=== PATIENT | female | born 1935 | race Caucasian/White ===

== ENCOUNTER 2021-10-06 11:06 | Day surgery (SDC) | payer MEDICARE, SELFPAY ==
[2021-10-01 10:58] VITALS: BMI 25.4
[2021-10-06 11:46] VITALS: BP 187/63; PULSE 60; RESP 18; O2SAT 98
--- NOTE | 2021-10-06 14:15 | P.PN_ITS ---
[facility] Anesthesia Checklist - Patient Identification Patient Identification: Arm Band - Structural Data Admitted From: Home Planned Operative Procedure/s: Pain pump placement Consent for Planned Operative Procedure(s) Verified: Yes - NPO Status Verified Time NPO: 00:00 - Additional verifications Anesthesia Reactions: No Hx Blood Transfusions: No Blood Transfusion Reaction: No - Airway Assessment C-Spine Mobility Assessed: Yes TMJ Mobility Assessed: Yes Dentition: Poor Dentition - Neurological Assessment Level of Consciousness: Awake Hx Seizures: No Numbness or tingling in extremities: No - Anesthesia Plan Anesthesia Risk discussed: Yes Anesthesia Plan: Verified ASA Class: III Anesthesia Type: MAC [facility] History I have reviewed the patient's past medical history: Yes Medical History: Reports:: Cancer (SKIN), Gastroesophageal Reflux Disease(GERD), Hyperlipidemia, Hypertension Denies:: Diabetes Mellitus Type 1, Diabetes Mellitus Type 2, Internal Pacemaker, MRSA, Seizures *Have you ever received a pneumonia vaccine?: Yes *Have you received a flu vaccine this season?: Yes Other Medical History: Reports: Other (BACK ISSUE 2019, pacemaker). Denies: Blood Transfusion Reaction Anesthesia experience/problems:: None Other Surgeries: Yes: Hysterectomy-Total, Pacemaker Amputation: No Fractures: No - *Social History Smoking Status: Never smoker Alcohol Intake: never Substance Use Type: denies use *Occupational Status:: retired Housing: house Household Members: none *Travel in the last 8 weeks: None Family Hx:: Unable to obtain
--- NOTE | 2021-10-06 15:04 | P.OP_ITS ---
Date of procedure: 10/06/21 Pre-op Diagnosis:: Degenerative disc disease of lumbar spine with lumbar radiculopathy symptoms and postlaminectomy syndrome lumbar spine Post-op Diagnosis:: Same Procedure performed:: Permanent pain pump placement with intrathecal catheter placement and pump generator placement Surgeon:: Jason Juan MD [employer] OPERATOR:: Xochilt Caal Anesthesia: MAC Estimated blood loss (mL): 5 Clinical Note:: This patient is a pleasant 85-year-old white female who we have been treating for low back pain with lumbar radiculopathy symptoms and postlaminectomy syndrome lumbar spine. She has failed all previous conservative therapy including physical therapy, oral medications, previous surgery and she is not a candidate for any further surgery. She has had a successful psychological evaluation. She is also had a successful intrathecal pump trial. She presents for permanent placement of intrathecal pain pump today. Operative findings:: None Operative note:: Informed consent was obtained the risk and benefits of the procedure were explained to the patient. Patient was taken the operating room placed prone on the procedure table. She was prepped and draped in sterile fashion. C-arm fluoroscopy was used to view the lumbar spine. The pump generator pocket was made on the left flank. The skin and subcutaneous tissues adjacent to the L4-5 and L5-S1 interspace were anesthetized using lidocaine. I made an incision and dissected down to the lumbar paraspinous fascia. A 15-gauge spinal needle was inserted and advanced into the L5-S1 interspace until clear CSF was obtained. After this intrathecal catheter was inserted advanced very easily to the L1 vertebral body. The stylette of the catheter and the needle were withdrawn. The catheter secured to the fascia with 2 anchoring devices and 2-0 Prolene. I prepared the pump with 20 mls of intrathecal morphine 5 mg/mL. I then tunneled the catheter from the back to the pump pocket and attached catheter to the pump. We were able to freely withdraw clear CSF through the side-port. Both incisions were irrigated with antibiotic solution. Both incisions were then closed with 2-0 Vicryl followed by 4-0 nylon. A wound VAC was placed over the incisions. The patient was placed in an abdominal binder taken recovery in stable condition. Patient tolerated the procedure well with no complications. Pump was interrogated and started 0.25 mg/day of intrathecal morphine. Patient was discharged home neurologically intact with good relief of pain symptoms. Pain and disposition: We will follow-up with this patient in 1 week in our [place] office. If she has any problems questions to call us back in the pain clinic. Condition: stable Disposition: PACU Complications:: None
[2021-10-06 15:22] VITALS: BP 143/57; PULSE 64; RESP 18; TEMP 36.3; O2SAT 99
[2021-10-06 15:32] VITALS: BP 171/78; PULSE 59; RESP 18; O2SAT 96
[2021-10-06 15:42] VITALS: BP 164/66; PULSE 59; RESP 18; O2SAT 97
[2021-10-06 15:52] VITALS: BP 172/77; PULSE 60; RESP 18; O2SAT 97
== END 2021-10-06 16:05 | disposition home or self-care (01) ==
LOC: OR 11:10
PROVIDERS: PCP Family Medicine; Visit Provider Anesthesiology
DX: M51.16 Intervertebral disc disorders with radiculopathy, lumbar region (principal); M96.1 Postlaminectomy syndrome, not elsewhere classified; K21.9 Gastro-esophageal reflux disease without esophagitis; E78.5 Hyperlipidemia, unspecified; I10 Essential (primary) hypertension; M15.4 Erosive (osteo)arthritis; Z95.810 Presence of automatic (implantable) cardiac defibrillator; Z79.899 Other long term (current) drug therapy
CPT/HCPCS: 62350; 62362; C1755; C1772; J3370

== ENCOUNTER → 2021-10-23 14:53 | Outpatient (CLI) | payer MEDICARE, SELFPAY ==
[2021-10-23 13:32] LABS: Basophils # 0.1 K/mm3 (0-0.2); Basophils % 1.2 % (0.1-2.0); Eosinophils # 0.1 K/mm3 (0.0-0.4); Eosinophils % 1.8 % (0.1-12.0); Hematocrit 40.8 % (37.0-47.0); Hemoglobin 13.2 g/dL (12.2-16.2); Lymphocytes # 1.7 K/mm3 (0.7-4.5); Lymphocytes % 28.8 % (10-50); Mean Corpuscular HGB Conc 32.4 g/dL (31.8-35.4); Mean Corpuscular Hemoglobin 31.4 pg (27.0-31.2); Mean Corpuscular Volume 96.8 fl (81-99); Monocytes # 0.5 K/mm3 (0.1-1.0); Neutrophils # 3.5 K/mm3 (1.8-7.8); Neutrophils % 60.1 % (37.0-80.0); Platelet Count 319 K/mm3 (142-424); Red Blood Count 4.22 M/mm3 (4.20-5.40); Red Cell Distribution Width 14.4 % (11.5-17.5); White Blood Count 5.8 K/mm3 (4.8-10.8)
[2021-10-23 14:10] LABS: Alanine Aminotransferase 14 U/L (12-78); Albumin Level 3.9 g/dl (3.5-5.0); Albumin/Globulin Ratio 1.4 (1.1-1.8); Alkaline Phosphatase 65 U/L (38-126); Anion Gap 11.1 mEq/L (5-15); Aspartate Amino Transferase 25 U/L (14-36); Bilirubin,Total 0.3 mg/dl (0.2-1.3); Blood Urea Nitrogen 19 mg/dl (7-17); Calcium 9.2 mg/dl (8.4-10.2); Carbon Dioxide 26 mmol/L (22.0-30.0); Chloride 103 mmol/L (98-107); Estimated Glomerular Filt Rate 60 ml/min (>60); GFR (African American) 72 ML/MIN (>60); Globulin 2.7 g/dL (1.3-3.2); Glucose 83 mg/dl (74-100); Potassium 4.1 mmoL/L (3.5-5.1); Sodium 136 mmol/L (136-145); Total Protein,Serum 6.6 g/dl (6.3-8.2)
[2021-10-23 14:41] LABS: Thyroid Stimulating Hormone 5.37 uIU/mL (0.465-4.68)
== END ==
PROVIDERS: PCP Family Medicine; Visit Provider Family Medicine
DX: E78.5 Hyperlipidemia, unspecified (principal)
CPT/HCPCS: 80053; 84443; 85025

== ENCOUNTER 2024-05-11 14:46 | Day surgery (SDC) | payer MEDICARE, SELFPAY ==
[2024-05-11 14:55] VITALS: BP 151/42; PULSE 60; RESP 18; O2SAT 99
[2024-05-11 15:36] VITALS: BP 151/85; PULSE 60; RESP 16; O2SAT 98; BMI 28.3
--- NOTE | 2024-05-11 15:51 | EXP.PAIN.PRO ---
Procedure Date: 05/11/24 Time: 15:51 Anesthesiologist:: Abena Barrett APRN Complications:: None Pre-procedure Diagnosis:: Degenerative disc disease of lumbar spine with lumbar radiculopathy symptoms Post-procedure Diagnosis:: Same Indications for Procedure:: Patient is a pleasant 88-year-old female who presents today for intrathecal refill and reprogram. Today she rates her pain a 0 out of 10. She states that overall she is done really well the last couple of weeks and has not really had much back pain. Patient is currently managed with morphine 5 mg/mL with a daily dose of 0.3 mg/day. She denies any side effects from this medication. Her Kendell has been reviewed and is appropriate. Physical Exam: General: Alert and oriented x3, no acute distress, pleasant and cooperative Lungs: Respirations even and unlabored, symmetrical chest expansion Eyes: PERRL Musculoskeletal: Flexion and extension of lumbar [spine] somewhat guarded secondary to pain, [antalgic gait noted] Neurological: Speech clear, no gross sensory deficit Procedure Details:: Informed consent was obtained and the risk and benefits of the procedure were explained to the patient. The patient had noninvasive monitoring placed including noninvasive blood pressure cuff and pulse oximeter. Patient's pump was interrogated. The area over the pump was cleansed with chlorhexidine as a cleansing solution. In sterile fashion the pump was accessed with a 22-gauge needle. Approximately 12.5 mls of the pump solution was removed and discarded appropriately. The pump was then refilled with 20 mL's of morphine 5 mg/mL]. The needle was withdrawn and a bandage was placed over the puncture site. The infusion rate was reprogrammed and morphine 0.3 mg/day. The patient tolerated well with no complication. Plan and Disposition:: Patient tolerated her procedure well with no complications and was discharged neurologically intact. Patient will return to clinic in 3 months for her next intrathecal refill and reprogram. We will see the patient back in the clinic at the next intrathecal refill. Patient has been instructed to contact the clinic with any concerns before the next appointment. Dr. Juan has reviewed this note and agrees with this plan of care. This note was dictated using voice recognition software and make contain errors or omissions. -- It Is medically necessary for this patient to continue to have their intrathecal pump refilled at regular intervals. This patient had an intrathecal pain pump implanted after meeting criteria of chronic intractable pain for greater than 3 months and failing conservative treatments. Patient has committed and been compliant to the treatment plan and all planned follow up care. Since implantation of the intrathecal pain pump, the patient has had decreased pain and been more functional. Oral medications have been reduced including intake of oral opioids. Patient continues to do well with intrathecal therapy with decrease in pain symptoms and increase in functional status. Stopping intrathecal medications can lead to life threatening withdrawal, seizures, cardiac arrest, severe pain, and possible . Pumps that are not refilled at regular intervals can be damages and cause and need for replacement. We continually titrate dose and concentration to optimize pain relief and function. We are limited in concentration for certain drugs to safely deliver medications through the pump and stay within the recommendations from the Polyanalgesic Consensus Committee Guidelines. Depending on dose and concentration these pumps may need to be refilled sooner than 3 months as we titrate. A UDS is needed to verify patient's compliance with our office pain contract. This is ordered based off specific treatments related to chronic pain with the potential to abuse certain medications.
[2024-05-11 16:06] VITALS: BP 159/63; PULSE 60; RESP 16; O2SAT 98
== END 2024-05-11 16:06 | disposition home or self-care (01) ==
PROVIDERS: PCP Family Medicine; Visit Provider Nurse Practitioner Family
DX: M51.16 Intervertebral disc disorders with radiculopathy, lumbar region (principal)
CPT/HCPCS: 62370

== ENCOUNTER 2024-09-07 10:39 | Day surgery (SDC) | payer MEDICARE, SELFPAY ==
--- NOTE | 2024-09-07 10:43 | P.HP_ITS ---
History of Present Illness *Admission Date: 09/07/24 *Reason for visit:: Intrathecal refill, DDD *History of present illness: Degenerative disc disease [facility] Disclaimer: The information contained in this section may have been updated after the patient was seen, as this information can be updated by other users. Social History Smoking Status: Never smoker alcohol intake: never substance use type: denies use current occupational status: retired Travel in the last 8 weeks?: None household members: none housing: house current occupational exposures/hazards: No caffeine: Yes Have you lived/traveled outside [place] in past 30 days?: No Contact w/someone who lives/traveled outside US past 30 days?: No Exposure to someone with infectious disease in past 14 days?: No Do you have a fever (greater than 100.4 F or 38 C)?: No Have you tested positive for COVID-19?: No Exposed to someone with COVID-19 in past 14 days?: No Do you have a sore throat?: No Do you have a cough?: No Do you have any weakness?: No Do you have any diarrhea?: No Are you experiencing any unusual bleeding?: No Do you have any muscle aches/pain?: No Do you have any abdominal pain?: No Are you experiencing loss of taste or smell?: No Other Medical History Have you received the Flu Vaccine for this season: No Have you received the Pneumonia Vaccine: No Review of Systems Review of Systems Review of systems:: pertinent systems reviewed and negative unless documented below Review of systems (narrative): Review of Systems: General: No recent weight changes, no fever, no sleep disturbances Respiratory: No cough, no shortness of air, no recurring pulmonary infections Cardiovascular/peripheral vascular: No chest pain, no palpitations, no edema, no shortness of breath Gastrointestinal: No new onset incontinence, normal bowel movements reported Genitourinary: No new onset incontinence Musculoskeletal: Chronic back pain Psychiatric: [Normal mood/affect] Neurological: [Denies weakness in extremities], [denies balance issues] Meds Home Medications and Allergies Home Medications ?Medication ?Instructions ?Recorded ?Confirmed ?Type tramadol 50 mg tablet 50 mg PO .prn Pain 06/26/21 05/11/24 History amiodarone 200 mg tablet 200 mg PO DAILY High blood pressure 10/01/21 05/11/24 History carvedilol 3.125 mg tablet 3.125 mg PO BID High blood pressure 10/01/21 05/11/24 History lovastatin 20 mg tablet 20 mg PO DAILY Cholesterol 10/01/21 05/11/24 History pantoprazole 20 mg tablet,delayed See Rx Instructions .Route 10/01/21 05/11/24 History release .COMPLEX GERD alendronate 70 mg tablet 70 mg PO DAILY 10/23/21 05/11/24 History estradiol 2 mg (7.5 mcg/24 hour) 1 vag ring vaginal [id number] 10/23/21 05/11/24 History vaginal ring (Estring) levothyroxine 50 mcg tablet See Rx Instructions .Route 12/06/22 05/11/24 Rx .COMPLEX #90 tabs New Prescriptions to Start Prescriptions: Allergies Allergy/AdvReac Type Severity Reaction Status Date / Time No Known Allergies Allergy Verified 10/23/21 10:46 Exam Constitutional Constitutional: no acute distress *Routine HEENT Exam Head: Present normocephalic and atraumatic Eye: Present PERRL ENT: Present mucous membranes moist *Routine Neck Exam Neck: Present supple *Routine Respiratory Exam Respiratory: Present CTA bilaterally *Routine Cardiovascular Exam Cardiovascular: Present RRR *Routine Abdominal Exam Abdominal: Present soft *Routine Rectal Exam Rectal:: deferred *Routine Genitalia Exam Genitalia:: normal female Routine Back/Spine/Pelvis Exam Back/Spine: Present pain with flexion *Routine Skin Exam Skin: Present intact, dry and warm *Routine Neurological Exam Neurological: Present alert and oriented X3 Routine Psychiatric Exam Psychiatric: Present normal affect Assessment and Plan *Assessment and plan (1) Chronic pain syndrome: Status: Acute Category: Medical Code(s): G89.4 - Chronic pain syndrome Plan Patient has been instructed to contact the clinic with any concerns before the next appointment. Dr. Juan has reviewed this note and agrees with this plan of care. This note was dictated using voice recognition software and make contain errors or omissions. All injections are used with Lidocaine, Bupivacaine and dexamethasone. Occasionally urine drug screen is needed to verify patient's compliance with our office pain contract. This is ordered based off specific treatments related to chronic pain with the potential to abuse certain medications.
--- NOTE | 2024-09-07 10:44 | P.PCN_ITS ---
Procedure Date: 09/07/24 Time: 10:58 Anesthesiologist:: Abena Barrett APRN Complications:: None Pre-procedure Diagnosis:: Chronic pain syndrome degenerative disc disease Post-procedure Diagnosis:: Same Indications for Procedure:: Patient is a pleasant 88-year-old female who presents today for intrathecal refill and reprogram. Today she rates her pain a 0 out of 10. She denies any recent falls. She states overall she is still doing really well with her pump and not having any back pain.Patient is managed with intrathecal morphine 5 mg/mL with a daily dose of 0.3 mg/day. She denies any side effects. Her Kendell has been reviewed and is appropriate. Physical Exam: General: Alert and oriented x3, no acute distress, pleasant and cooperative Lungs: Respirations even and unlabored, symmetrical chest expansion Eyes: PERRL Musculoskeletal: Flexion and extension of lumbar [spine] somewhat guarded secondary to pain, [antalgic gait noted] Neurological: Speech clear, no gross sensory deficit Procedure Details:: Informed consent was obtained and the risk and benefits of the procedure were explained to the patient. The patient had noninvasive monitoring placed including noninvasive blood pressure cuff and pulse oximeter. Patient's pump was interrogated. The area over the pump was cleansed with chlorhexidine as a cleansing solution. In sterile fashion the pump was accessed with a 22-gauge needle. Approximately 12 mls of the pump solution was removed and discarded appropriately. The pump was then refilled with 20 mL's of morphine 5 mg/mL. The needle was withdrawn and a bandage was placed over the puncture site. The infusion rate was reprogrammed and continued at its current dosage. The patient tolerated well with no complication. Plan and Disposition:: Patient tolerated the procedure well with no complications and was discharged neurologically intact. Patient will return to clinic on or before their next intrathecal refill date. We will see the patient back in the clinic at the next intrathecal refill. Patient has been instructed to contact the clinic with any concerns before the next appointment. Dr. Juan has reviewed this note and agrees with this plan of care. This note was dictated using voice recognition software and make contain errors or omissions. -- It Is medically necessary for this patient to continue to have their intrathecal pump refilled at regular intervals. This patient had an intrathecal pain pump implanted after meeting criteria of chronic intractable pain for greater than 3 months and failing conservative treatments. Patient has committed and been compliant to the treatment plan and all planned follow up care. Since implantation of the intrathecal pain pump, the patient has had decreased pain and been more functional. Oral medications have been reduced including intake of oral opioids. Patient continues to do well with intrathecal therapy with decrease in pain symptoms and increase in functional status. Stopping intra thecal medications can lead to life threatening withdrawal, seizures, cardiac arrest, severe pain, and possible . Pumps that are not refilled at regular intervals can be damages and cause and need for replacement. We continually titrate dose and concentration to optimize pain relief and function. We are limited in concentration for certain drugs to safely deliver medications through the pump and stay within the recommendations from the Polyanalgesic Consensus Committee Guidelines. Depending on dose and concentration these pumps may need to be refilled sooner than 3 months as we titrate. A UDS is needed to verify patient's compliance with our office pain contract. This is ordered based off specific treatments related to chronic pain with the potential to abuse certain medications.
[2024-09-07 10:50] VITALS: BP 169/58; PULSE 68; RESP 18; O2SAT 99; BMI 22.4
[2024-09-07 10:55] VITALS: BP 173/83; PULSE 69; RESP 18; O2SAT 97
[2024-09-07 11:03] VITALS: BP 123/72; PULSE 68; RESP 16; O2SAT 99
== END 2024-09-07 11:03 | disposition home or self-care (01) ==
PROVIDERS: PCP Nurse Practitioner; Visit Provider Nurse Practitioner Family
DX: G89.4 Chronic pain syndrome (principal)
CPT/HCPCS: 62370; 99221